=== PATIENT | female | born 1985 | race Caucasian/White ===

== ENCOUNTER → 2016-11-27 | Outpatient (CLI) | payer MEDICAID ==
[2016-11-27 12:15] LABS: HEMATOCRIT 40.6 % (36.0-47.0); HEMOGLOBIN 13.6 g/dL (12.0-15.5); HGB HCT DIFFERENCE 0.2; MEAN CORPUSCULAR HEMOGLOBIN 30.3 pg (27.0-33.4); MEAN CORPUSCULAR HGB CONC 33.5 g/dL (32.0-36.0); MEAN CORPUSCULAR VOLUME 91 fl (80-97); RED BLOOD COUNT 4.48 10^6/uL (3.72-5.28); RED CELL DISTRIBUTION WIDTH 14.4 % (11.5-14.0); WHITE BLOOD COUNT 6.5 10^3/uL (4.0-10.5)
[2016-11-27 12:47] LABS: ALANINE AMINOTRANSFERASE 17 U/L (9-52); ALBUMIN 4.6 g/dL (3.5-5.0); ALKALINE PHOSPHATASE 89 U/L (38-126); AMYLASE 58 U/L (30-110); ANION GAP 13 (5-19); ASPARTATE AMINO TRANSFERASE 22 U/L (14-36); BILIRUBIN,TOTAL 0.5 mg/dL (0.2-1.3); BLOOD UREA NITROGEN 13 mg/dL (7-20); CALCIUM 10.2 mg/dL (8.4-10.2); CARBON DIOXIDE 27 mmol/L (22-30); CHLORIDE 105 mmol/L (98-107); CREATININE RESULT 0.75 mg/dL (0.52-1.25); GLUCOSE 82 mg/dL (75-110); POTASSIUM 4.1 mmol/L (3.6-5.0); SODIUM 145.4 mmol/L (137-145); TOTAL PROTEIN 7.8 g/dL (6.3-8.2)
[2016-11-27 14:03] LABS: BASOPHILS % (MANUAL) 1 % (0-2); EOSINOPHILS % (MANUAL) 4 % (0-6); LYMPHOCYTES % (MANUAL) 28 % (13-45); TOTAL CELLS COUNTED 100
[2016-11-27 14:04] LABS: RBC MORPHOLOGY COMMENT NORMO-CYTIC/CHROMIC
== END ==
LOC: LAB 12:01
PROVIDERS: ATTEND Nurse Practitioner Acute Care
DX: R10.9 Unspecified abdominal pain (principal)
CPT/HCPCS: 36415; 80053; 82150; 83690; 85025

== ENCOUNTER 2016-11-30 18:45 | Observation (INO) | payer MEDICAID ==
[2016-11-30] MEDS ORDERED: ONDANSETRON 4 MG TAB.RAPDIS PO ONE (19:21)
--- NOTE | 2016-11-30 19:21 | ER Document Report ---
ED Medical Screen (RME) - General Chief Complaint: Abdominal Pain Stated Complaint: UPPER/MID ABDOMINAL PAIN,VOMITING Time seen by provider: 19:19 Mode of Arrival: Ambulatory Information source: Patient Notes: 31-year-old female presents to ED right upper abdominal pain for the last week with nausea and vomiting. Denies fever. Has had a hysterectomy. She's had blood work and ultrasound done at the hospital for her primary care doctor but has too much pain to wait for her follow-up appointment. I have greeted and performed a rapid initial assessment of this patient. A comprehensive ED assessment and evaluation of the patient, analysis of test results and completion of medical decision making process will be conducted by an additional ED providers. TRAVEL OUTSIDE OF THE [place] IN LAST 30 DAYS: No Physical Exam - Vital signs Vitals: Temp Pulse Resp BP Pulse Ox 98.3 F 97 16 117/82 98 11/30/16 19:10 11/30/16 19:10 11/30/16 19:10 11/30/16 19:10 11/30/16 19:10 Course - Vital Signs Vital signs: Temp Pulse Resp BP Pulse Ox 98.3 F 97 16 117/82 98 11/30/16 19:10 11/30/16 19:10 11/30/16 19:10 11/30/16 19:10 11/30/16 19:10
[2016-11-30 21:46] LABS: ABSOLUTE EOSINOPHILS # (AUTO) 0.1 10^3/uL (0.0-0.6); ABSOLUTE LYMPHOCYTES (AUTO) 2.6 10^3/uL (0.5-4.7); ABSOLUTE MONOCYTES (AUTO) 0.5 10^3/uL (0.1-1.4); BASOPHILS % (AUTO) 0.2 % (0-2); HEMATOCRIT 39.5 % (36.0-47.0); HEMOGLOBIN 13.1 g/dL (12.0-15.5); HGB HCT DIFFERENCE -0.2; LYMPHOCYTES % (AUTO) 36.3 % (13-45); MEAN CORPUSCULAR HEMOGLOBIN 30.3 pg (27.0-33.4); MEAN CORPUSCULAR HGB CONC 33.2 g/dL (32.0-36.0); MEAN CORPUSCULAR VOLUME 91 fl (80-97); MONOCYTES % (AUTO) 7.3 % (3-13); RED BLOOD COUNT 4.33 10^6/uL (3.72-5.28); RED CELL DISTRIBUTION WIDTH 14.1 % (11.5-14.0); SEGMENTED NEUTROPHILS % (AUTO) 54.2 % (42-78); WHITE BLOOD COUNT 7.3 10^3/uL (4.0-10.5)
[2016-11-30 21:47] LABS: APPEARANCE,URINE SLIGHTLY-CLOUDY; BILIRUBIN,URINE NEGATIVE (NEGATIVE); GLUCOSE, URINE NEGATIVE (NEGATIVE); KETONES,URINE NEGATIVE (NEGATIVE); LEUKOCYTE ESTERASE,URINE NEGATIVE (NEGATIVE); NITRITE,URINE NEGATIVE (NEGATIVE); PROTEIN,URINE NEGATIVE (NEGATIVE); URINE SPECIFIC GRAVITY 1.016; UROBILINOGEN,URINE NEGATIVE mg/dL (<2.0)
[2016-11-30 22:05] LABS: ALANINE AMINOTRANSFERASE 23 U/L (9-52); ALBUMIN 4.9 g/dL (3.5-5.0); ALKALINE PHOSPHATASE 93 U/L (38-126); ANION GAP 12 (5-19); ASPARTATE AMINO TRANSFERASE 22 U/L (14-36); BILIRUBIN,TOTAL 0.4 mg/dL (0.2-1.3); BLOOD UREA NITROGEN 20 mg/dL (7-20); CALCIUM 9.9 mg/dL (8.4-10.2); CARBON DIOXIDE 29 mmol/L (22-30); CHLORIDE 103 mmol/L (98-107); CREATININE RESULT 0.96 mg/dL (0.52-1.25); GLUCOSE 87 mg/dL (75-110); LIPASE 44.2 U/L (23-300); POTASSIUM 4.8 mmol/L (3.6-5.0); SODIUM 143.8 mmol/L (137-145); TOTAL PROTEIN 7.5 g/dL (6.3-8.2)
[2016-12-01] MEDS ORDERED: ONDANSETRON HCL INJ/PF 4 MG/2 ML SDV IV ONE (02:07)
[2016-12-01] MEDS ORDERED: MORPHINE SULFATE 10 MG/ML INJ IV ONE (02:07)
[2016-12-01] MEDS ORDERED: NORMAL SALINE 1000 ML 1,000 ML IV ONE (02:08)
--- NOTE | 2016-12-01 02:10 | ER Document Report ---
ED GI/ - General Chief Complaint: Abdominal Pain Stated Complaint: UPPER/MID ABDOMINAL PAIN,VOMITING Time seen by provider: 02:00 Mode of Arrival: Ambulatory Notes: Patient is a 31-year-old female that comes emergency department for chief complaint of right upper quadrant pain and vomiting, symptoms been present for the past 2 weeks but much worse over the past 2 days, patient states today she couldn't eat anything except sit a little bit of water. Patient had an ultrasound this morning by her primary care provider. Patient denies any fever , reports normal bowel movements. Patient has had a hysterectomy (reportedly secondary to cervical cancer presence), denies any daily medications or any other medical history. TRAVEL OUTSIDE OF THE [place] IN LAST 30 DAYS: No - Related Data Allergies/Adverse Reactions: Penicillins Allergy (Verified 11/30/16 21:27) Past Medical History - General Information source: Patient - Social History Smoking Status: Current Every Day Smoker Frequency of alcohol use: None Drug Abuse: None Lives with: Family Family History: Reviewed & Not Pertinent Patient has suicidal ideation: No Patient has homicidal ideation: No Renal/ Medical History: Denies: Hx Peritoneal Dialysis Past Surgical History: Reports: Hx Hysterectomy - Immunizations Immunizations up to date: Yes Hx Diphtheria, Pertussis, Tetanus Vaccination: Yes Review of Systems - Review of Systems Constitutional: No symptoms reported EENT: No symptoms reported Cardiovascular: No symptoms reported Respiratory: No symptoms reported Gastrointestinal: See HPI Genitourinary: No symptoms reported Female Genitourinary: No symptoms reported Musculoskeletal: No symptoms reported Skin: No symptoms reported Hematologic/Lymphatic: No symptoms reported Neurological/Psychological: No symptoms reported Physical Exam - Vital signs Vitals: Temp Pulse Resp BP Pulse Ox 98.3 F 97 16 117/82 98 11/30/16 19:10 11/30/16 19:10 11/30/16 19:10 11/30/16 19:10 11/30/16 19:10 Interpretation: Normal - General General appearance: Alert, Anxious In distress: Mild - HEENT Head: Normocephalic, Atraumatic Eyes: Normal Pupils: PERRL - Respiratory Respiratory status: No respiratory distress Chest status: Nontender Breath sounds: Normal. No: Decreased air movement, Wheezing Chest palpation: Normal - Cardiovascular Rhythm: Regular Heart sounds: Normal auscultation Murmur: No - Abdominal Inspection: Normal Distension: No distension Bowel sounds: Normal Tenderness: Tender - Patient is tender in the epigastric and right upper quadrant on examination with some guarding, examination brings patient to tears , lower abdominal exam is unremarkable, Beaulieu's sign, Guarding - Back Back: Normal, Nontender. No: Tender - Extremities General upper extremity: Normal inspection, Nontender, Normal color, Normal ROM , Normal temperature General lower extremity: Normal inspection, Nontender, Normal color, Normal ROM , Normal temperature, Normal weight bearing. 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 No obstructive findings in the gallbladder ducts. CBC, chemistry, lipase, urinalysis are all unremarkable. After pain medication, patient still noted to be in pain, patient was given additional Toradol but still was having continued symptoms. Patient stating she is unable to eat anything at home. Because of ongoing symptoms of pain on examination and cholelithiasis patient will be discussed with surgical asked contact center specialist. Discussed with Dr. Sears per [facility] guidelines. Patient evaluated by Dr. Chandler, patient will be admitted to the hospital. - Vital Signs Vital signs: Temp Pulse Resp BP Pulse Ox 97.7 F 72 16 95/60 L 99 12/01/16 02:00 12/01/16 02:00 12/01/16 02:00 12/01/16 02:00 12/01/16 02:00 - Laboratory Result Diagrams: 11/30/16 21:27 11/30/16 21:27 Laboratory results interpreted by me: 11/30/16 21:27 RDW 14.1 H Discharge - Discharge Clinical Impression: Right upper quadrant pain Cholelithiasis Qualifiers: Cholelithiasis location: gallbladder Cholecystitis presence: without cholecystitis Biliary obstruction: without biliary obstruction Qualified Code(s) : K80.20 - Calculus of gallbladder without cholecystitis without obstruction Condition: Stable Disposition: ADMITTED INPATIENT Admitting Provider: Surgicalist Unit Admitted: Surgical Floor Referrals: NUPUR STILES MD, MD [Primary Care Provider] - Follow up as needed
[2016-12-01] MEDS ORDERED: NORMAL SALINE 1000 ML 1,000 ML IV PRN (02:27)
[2016-12-01] MEDS ORDERED: KETOROLAC TROMETHAMINE INJ/PF 30 MG/1 ML SDV IV ONE (04:06)
[2016-12-01] MEDS ORDERED: LEVOFLOXACIN 750 MG/D5W RTU 150 ML IV ONE (06:36)
[2016-12-01] MEDS ORDERED: METRONIDAZOLE 500 MG/NS RTU 100 ML IV ONE (06:36)
[2016-12-01] MEDS ORDERED: DEXTROSE 5%-NORMAL SALINE 1,000 ML IV PRN (06:40)
--- NOTE | 2016-12-01 06:47 | PDOC H&P ---
History of Present Illness Admission Date/PCP: NUPUR STILES MD, Patient complains of: Abdominal pain History of Present Illness: ANUM SMITH is a 31 year old female who was seen in the emergency department by TAM Arora, complaining of a month history of abdominal pain, worse over the last 2 weeks. This is associated with anorexia and nausea and only one episode of vomiting. Patient was seen yesterday at Dr. Stiles's office where she was sent to the hospital have a gallbladder ultrasound which showed gallstones. Patient went home and came back to the emergency department complaining of pain. sHe is kept nothing by mouth, and surgery is consulted. Has a persisting abdominal pain requiring intravenous pain medication, she was advised admission. Past Surgical History Past Surgical History: Reports: Hysterectomy - 2010, [place], abnormal cervical Social History Smoking Status: Current Every Day Smoker Family History Parental Family History Reviewed: Yes Children Family History Reviewed: Yes Sibling(s) Family History Reviewed.: Yes Medication/Allergy Allergies/Adverse Reactions: Penicillins Allergy (Verified 11/30/16 21:27) Review of Systems Constitutional: PRESENT: other Eyes: PRESENT: other - Denies denies Ears: PRESENT: hearing changes - None Breasts: PRESENT: other - Denies Cardiovascular: PRESENT: as per HPI Respiratory: PRESENT: other Gastrointestinal: PRESENT: other - Denies she denies previous episodes of abdominal pain prior to 1 month ago. Never had any gastrointestinal problems Integumentary: PRESENT: other - Denies Physical Exam Vital Signs: Temp Pulse Resp BP Pulse Ox 97.7 F 72 16 95/60 L 99 12/01/16 02:00 12/01/16 02:00 12/01/16 02:00 12/01/16 02:00 12/01/16 02:00 Intake & Output 11/29/16 11/30/16 12/01/16 06:59 06:59 06:59 Weight 55.9 kg General appearance: PRESENT: no acute distress Head exam: PRESENT: normocephalic Eye exam: PRESENT: EOMI Mouth exam: PRESENT: dry mucosa Neck exam: PRESENT: full ROM Respiratory exam: PRESENT: clear to auscultation cesar Cardiovascular exam: PRESENT: RRR Pulses: PRESENT: normal carotid pulses GI/Abdominal exam: PRESENT: other - Soft and minimally tender right upper quadrant no peritoneal signs no rigidity Rectal exam: PRESENT: other Gentrourinary exam: PRESENT: other - Deferred deferred Musculoskeletal exam: PRESENT: full ROM Neurological exam: PRESENT: alert, altered, awake Psychiatric exam: PRESENT: other Skin exam: PRESENT: other - Unremarkable Results Laboratory Results: 11/30/16 21:27 11/30/16 21:27 11/30/16 11/30/16 11/30/16 21:27 21:27 21:27 WBC 7.3 RBC 4.33 Hgb 13.1 Hct 39.5 MCV 91 MCH 30.3 MCHC 33.2 RDW 14.1 H Plt Count 183 Seg Neutrophils % 54.2 Lymphocytes % 36.3 Monocytes % 7.3 Eosinophils % 2.0 Basophils % 0.2 Absolute Neutrophils 4.0 Absolute Lymphocytes 2.6 Absolute Monocytes 0.5 Absolute Eosinophils 0.1 Absolute Basophils 0.0 Sodium 143.8 Potassium 4.8 Chloride 103 Carbon Dioxide 29 Anion Gap 12 BUN 20 Creatinine 0.96 Est GFR ( Amer) > 60 Est GFR (Non-Af Amer) > 60 Glucose 87 Calcium 9.9 Total Bilirubin 0.4 AST 22 ALT 23 Alkaline Phosphatase 93 Total Protein 7.5 Albumin 4.9 Lipase 44.2 Urine Color YELLOW Urine Appearance SLIGHTLY-CLOUDY Urine pH 7.0 Ur Specific [place] 1.016 Urine Protein NEGATIVE Urine Glucose (UA) NEGATIVE Urine Ketones NEGATIVE Urine Blood NEGATIVE Urine Nitrite NEGATIVE Ur Leukocyte Esterase NEGATIVE Urine WBC (Auto) 4 Urine RBC (Auto) 1 Assessment & Plan - Inpatient Certification Based on my medical assessment, after consideration of the patient's comorbidities, presenting symptoms, or acuity I expect that the services needed warrant INPATIENT care.: Yes I certify that my determination is in accordance with my understanding of Medicare's requirements for reasonable and necessary INPATIENT services [42 CFR 412.3e].: Yes Medical Necessity: Need For IV Fluids, Need for Pain Control, Need for IV Antibiotics, Need for Surgery - Plan Summary Plan Summary: Impression: 1. Symptomatic cholelithiasis with cholecystitis 2. Smoker Plan:. 1. Admit to surgical service, nothing by mouth and on IV fluids intravenous antibiotics. 2. We'll plan interval laparoscopic possible open cholecystectomy. I explained patient to be admitted to the surgical service and may undergo surgery within the next 24-48 hours
[2016-12-01] MEDS ORDERED: RINGERS SOLUTION,LACTATED 1,000 ML IV PRN (08:11)
[2016-12-01] MEDS: MORPHINE SULFATE 10 MG/ML INJ IV PRN ×4 (10:33→23:55)
[2016-12-01] MEDS: CIPROFLOXACIN 400 MG/D5W RTU 200 ML IV SCH ×2 (10:34→22:20)
[2016-12-01] MEDS: DEXTROSE 5%-NORMAL SALINE 1,000 ML IV PRN (23:54)
[2016-12-02] MEDS: MORPHINE SULFATE 10 MG/ML INJ IV PRN ×2 (04:12→08:28)
--- NOTE | 2016-12-02 07:19 | PDOC PROGRESS REPORT ---
Subjective Progress Note for:: 12/01/16 Subjective:: Right upper quadrant pain. Currently no nausea or vomiting. Physical Exam Vital Signs: Temp Pulse Resp BP Pulse Ox 98 F 69 18 95/64 L 100 12/02/16 05:52 12/02/16 05:52 12/02/16 05:52 12/02/16 05:52 12/02/16 05:52 Intake & Output 12/01/16 12/02/16 12/03/16 06:59 06:59 06:59 Intake Total 0 Balance 0 Weight 57.323 kg General appearance: PRESENT: no acute distress Eye exam: PRESENT: EOMI Mouth exam: PRESENT: tongue midline Neck exam: ABSENT: JVD, lymphadenopathy, tenderness, thyromegaly Respiratory exam: PRESENT: clear to auscultation cesar Cardiovascular exam: PRESENT: RRR GI/Abdominal exam: PRESENT: Beaulieu's sign, soft, tenderness. ABSENT: distended , guarding, rebound Extremities exam: ABSENT: tenderness Neurological exam: PRESENT: alert, oriented to person, oriented to place, oriented to time, oriented to situation Psychiatric exam: PRESENT: appropriate affect, normal mood Skin exam: ABSENT: jaundice Assessment & Plan - Diagnosis (1) Cholelithiasis Qualifiers: Cholelithiasis location: gallbladder Cholecystitis presence: without cholecystitis Biliary obstruction: without biliary obstruction Qualified Code(s): K80.20 - Calculus of gallbladder without cholecystitis without obstruction Is this a current diagnosis for this admission?: Yes (2) Right upper quadrant pain Is this a current diagnosis for this admission?: YesPlan: Reviewed her history, labs and imaging study in detail. Symptomatic cholelithiasis. We discussed laparoscopic cholecystectomy with cholangiogram in detail. Questions were answered. We discussed the risks, benefits and alternatives including , heart attack, stroke, blood clots in the legs, blood clots in lungs, pneumonia, bleeding, infection, hernia, bile leak, failure of symptoms to resolve, long-term diarrhea, damage to surrounding structures such as bladder, bowels, blood vessels or bile duct resulting in serious long-term health issues. We discussed the possibility of retained stone with need for further procedure such as ERCP. Understands and wishes to proceed.
[2016-12-02] MEDS ORDERED: ONDANSETRON HCL INJ/PF 4 MG/2 ML SDV ONE (07:53)
[2016-12-02] MEDS ORDERED: GLYCOPYRROLATE INJ 0.4 MG/2 ML VIAL ONE (07:53)
[2016-12-02] MEDS ORDERED: ROCURONIUM BROMIDE INJ 50 MG/5 ML VIAL IV ONE (07:53)
[2016-12-02] MEDS ORDERED: SUCCINYLCHOLINE CHLORIDE INJ 200 MG/10 ML VIAL ONE (07:53)
[2016-12-02] MEDS ORDERED: DEXAMETHASONE SOD PHOSPHATE INJ 4 MG/1 ML VIAL ONE (07:53)
[2016-12-02] MEDS ORDERED: NEOSTIGMINE METHYLSULFATE 10 MG/10 ML VIAL ONE (07:53)
[2016-12-02 08:08] LABS: HEMOGLOBIN 11.3 g/dL (12.0-15.5); HGB HCT DIFFERENCE -1.1; MEAN CORPUSCULAR HGB CONC 32.2 g/dL (32.0-36.0); MEAN CORPUSCULAR VOLUME 93 fl (80-97); RED BLOOD COUNT 3.76 10^6/uL (3.72-5.28); RED CELL DISTRIBUTION WIDTH 14.4 % (11.5-14.0); WHITE BLOOD COUNT 5.8 10^3/uL (4.0-10.5)
[2016-12-02 08:24] LABS: ANION GAP 7 (5-19); BLOOD UREA NITROGEN 12 mg/dL (7-20); CALCIUM 8.9 mg/dL (8.4-10.2); CARBON DIOXIDE 26 mmol/L (22-30); CHLORIDE 109 mmol/L (98-107); CREATININE RESULT 0.72 mg/dL (0.52-1.25); GLUCOSE 93 mg/dL (75-110); POTASSIUM 4.5 mmol/L (3.6-5.0); SODIUM 142.2 mmol/L (137-145)
[2016-12-02] MEDS: DEXTROSE 5%-NORMAL SALINE 1,000 ML IV PRN (08:40)
[2016-12-02] MEDS: CIPROFLOXACIN 400 MG/D5W RTU 200 ML IV SCH (09:41)
[2016-12-02] MEDS ORDERED: BUPIVACAINE HCL 0.25% /EPINEPHRINE INJ/PF 30 ML SDV ONE (10:37)
[2016-12-02] MEDS ORDERED: LIDOCAINE 1% INJ-PF (10 MG/ML) 30 ML SDV ONE (10:37)
[2016-12-02] MEDS ORDERED: HYDROMORPHONE HCL INJ/PF 2 MG/ML AMPULE ONE (12:34)
[2016-12-02] MEDS ORDERED: FENTANYL CITRATE INJ/PF 250 MCG/5 ML AMPULE ONE (12:34)
[2016-12-02] MEDS ORDERED: ACETAMINOPHEN 100 ML IV ONE (12:35)
[2016-12-02] MEDS ORDERED: PROPOFOL INJ 200 MG/20 ML VIAL IV ONE (12:35)
[2016-12-02] MEDS ORDERED: MIDAZOLAM 2 MG/2 ML INJ ONE (12:35)
[2016-12-02] MEDS ORDERED: INFLUENZA ADLT QUAD (36MOS+) 2016-17 VAC 0.5 ML SYR IM PRN (13:05)
--- NOTE | 2016-12-02 13:14 | PDOC PROGRESS REPORT ---
Subjective Progress Note for:: 12/02/16 Subjective:: Had nausea and small volume vomiting earlier today. Still with right upper quadrant pain. Wants to proceed with surgery Physical Exam Vital Signs: Temp Pulse Resp BP Pulse Ox 97.8 F 71 17 108/65 99 12/02/16 11:46 12/02/16 11:46 12/02/16 11:46 12/02/16 11:46 12/02/16 11:46 Intake & Output 12/01/16 12/02/16 12/03/16 06:59 06:59 06:59 Intake Total 0 Balance 0 Weight 57.323 kg General appearance: PRESENT: no acute distress Head exam: PRESENT: normocephalic Respiratory exam: PRESENT: clear to auscultation cesar Cardiovascular exam: PRESENT: RRR GI/Abdominal exam: PRESENT: Beaulieu's sign, soft, tenderness. ABSENT: distended , guarding, rebound Neurological exam: PRESENT: alert, oriented to situation Psychiatric exam: PRESENT: appropriate affect, normal mood Skin exam: ABSENT: jaundice Results Laboratory Results: 12/02/16 07:38 12/02/16 07:38 12/02/16 12/02/16 12/02/16 07:38 07:38 07:38 WBC 5.8 RBC 3.76 Hgb 11.3 L Hct 35.0 L MCV 93 MCH 30.0 MCHC 32.2 RDW 14.4 H Plt Count 137 L Sodium 142.2 Potassium 4.5 Chloride 109 H Carbon Dioxide 26 Anion Gap 7 BUN 12 Creatinine 0.72 Est GFR ( Amer) > 60 Est GFR (Non-Af Amer) > 60 Glucose 93 Calcium 8.9 Serum HCG, Qual Blood Type B POSITIVE Antibody Screen NEGATIVE 12/02/16 07:38 WBC RBC Hgb Hct MCV MCH MCHC RDW Plt Count Sodium Potassium Chloride Carbon Dioxide Anion Gap BUN Creatinine Est GFR ( Amer) Est GFR (Non-Af Amer) Glucose Calcium Serum HCG, Qual NEGATIVE Blood Type Antibody Screen Assessment & Plan - Diagnosis (1) Cholelithiasis Qualifiers: Cholelithiasis location: gallbladder Cholecystitis presence: without cholecystitis Biliary obstruction: without biliary obstruction Qualified Code(s): K80.20 - Calculus of gallbladder without cholecystitis without obstruction Is this a current diagnosis for this admission?: Yes (2) Right upper quadrant pain Is this a current diagnosis for this admission?: YesPlan: Symptomatic cholelithiasis. Proceed with surgery. SCDs. 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 Questions answered.
[2016-12-02] MEDS ORDERED: MEPERIDINE HCL/PF INJ 25 MG/1 ML DISP.SYRIN IV PRN (13:41)
[2016-12-02] MEDS ORDERED: DIPHENHYDRAMINE HCL 50 MG/ML VIAL IV PRN (13:41)
[2016-12-02] MEDS ORDERED: FENTANYL CITRATE INJ/PF 100 MCG/2 ML AMPUL IV PRN ×3 (13:41)
[2016-12-02] MEDS ORDERED: MORPHINE SULFATE 10 MG/ML INJ IV PRN (13:41)
[2016-12-02] MEDS ORDERED: PROMETHAZINE HCL INJ 25 MG/1 ML VIAL IV PRN ×2 (13:41)
[2016-12-02] MEDS ORDERED: OXYCODONE-ACETAMINOPHEN 5-325 MG TABLET PO PRN ×2 (13:41)
[2016-12-02] MEDS ORDERED: ONDANSETRON HCL INJ/PF 4 MG/2 ML SDV IV PRN (14:38)
--- NOTE | 2016-12-02 14:39 | Operative Report ---
Operative Report DATE OF SURGERY: 12/02/16 PREOPERATIVE DIAGNOSIS: Symptomatic cholelithiasis POSTOPERATIVE DIAGNOSIS: Symptomatic cholelithiasis OPERATION: Laparoscopic cholecystectomy with cholangiogram SURGEON: WATSON HORN 1ST BUILDING ASSOCIATE: RUSS VILLARREAL ANESTHESIA: GA TISSUE REMOVED OR ALTERED: Gallbladder COMPLICATIONS: None noted ESTIMATED BLOOD LOSS: minimal INTRAOPERATIVE FINDINGS: Normal cholangiogram. PROCEDURE: The patient was brought to the operative suite and placed supine on the OR table. Timeout was performed. Antibiotics were administered. Padding and positioning was appropriate. The patient was induced, intubated and maintained on general endotracheal anesthesia throughout the procedure. Patient was prepped and draped in the normal sterile fashion. The skin above the umbilicus was infiltrated with local anesthetic. A 5 mm incision was made. A Julio Cesar and Adson were used to dissect down to the level of the fascia, grasped the fascia and elevate it. The Veress needle was placed. Satisfactory water drop test was performed. Low flow insufflation was connected and yielded low opening pressure. Insufflation was advanced to high flow and pneumoperitoneum of 15 mmHg was obtained and maintained with procedure. Trocar and camera were placed through this incision confirming entry into the abdominal cavity without incident. Next the 11 mm epigastric and the two 5 mm right subcostal trochars were placed in the normal location and fashion under direct visualization, after infiltration with local anesthetic. Instruments were introduced. The abdominal cavity was surveyed and appeared normal except for the gallbladder. There were adhesions to the gallbladder which were taken down with a combination of electrocautery and blunt dissection. The fundus of the gallbladder was elevated over the liver edge. The dissection the gallbladder began on the lateral aspect. Dissection continued down to the triangle of Calot. The cystic artery and the cystic duct were dissected out and seen to be clearly entering the gallbladder with no obscuration. The cystic duct was clipped adjacent to the gallbladder. A ductotomy was made. A cholangiocatheter was inserted. A cholangiogram was performed showing good filling of the biliary tree proximally and distally on down into the duodenum with no filling defects. The cholangiocatheter was removed. The cystic duct was clipped 3 times proximally and divided between clips. The cystic artery was clipped twice proximally and once distally against the gallbladder and divided between the clips. The gallbladder was removed from the gallbladder fossa with hook electrocautery. It was placed in an Endo Catch bag and removed through the epigastric trocar site. It was sent to pathology for further analysis. The field was irrigated and suctioned. The field was intact with no leakage of bile or blood. Clips were in place. The abdominal cavity was surveyed and was unremarkable. Trocar sites were infiltrated with more local anesthetic. The epigastric trocar site was closed at the level of the fascia with 0 Vicryl suture using the Endo Close needle. Pneumoperitoneum was released. Trochars were removed. Incisions were closed at the level of the skin with 4-0 Monocryl. The closed incisions were dressed with benzoin tincture , Steri-Strips and Band-Aids. All lap needle sponge counts were correct. The patient tolerated procedure well and was taken recovery in stable condition. TAM Herndon was present and assisted for the entirety of the case. She provided dahl assistance with a variety of tasks including but not limited to obtaining pneumoperitoneum, operating camera, retracting, and closing incisions.
[2016-12-02] MEDS: HYDROCODONE/ACETAMINOPHEN 5-325 MG TABLET PO PRN ×2 (15:48→18:52)
[2016-12-02 20:04] VITALS: BP 95/64
== END 2016-12-02 20:26 | disposition home or self-care (01) ==
LOC: ER 18:45 → EH 12-01 06:38 → 2S 12-01 08:45
PROC: 0FT44ZZ Resection of Gallbladder, Percutaneous Endoscopic Approach (ICD-10-PCS; principal; 2016-12-02 14:15)
DX: K80.10 Calculus of gallbladder with chronic cholecystitis without obstruction (principal); F17.210 Nicotine dependence, cigarettes, uncomplicated
CPT/HCPCS: 47563; 99285; 96361; 96374; 96375; 86900; 86901; 36415 ×2; 86850; 83690; 84703; 85025; 85027; 80048; 80053; 81001; 88304 ×2; 74300; 94799; G0378 ×3; Q9967; J2250; J3490 ×4; J1100; S0119; J3010; J1885; J2270 ×2; J1170; J0330; J2405 ×2; J7030; J7120; J2704; J0744 ×2; J0131; 790

== ENCOUNTER → 2016-11-30 | Outpatient (CLI) | payer MEDICAID | LOC: RAD 08:02 | PROVIDERS: ATTEND Nurse Practitioner Acute Care | DX: R10.9 Unspecified abdominal pain (principal) | CPT/HCPCS: 76705 ==

== ENCOUNTER 2017-06-23 12:47 | Emergency (ER) | payer MEDICAID ==
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
[2017-06-23] MEDS ORDERED: IBUPROFEN 800 MG TABLET PO ONE (14:00)
[2017-06-23 16:48] VITALS: BP 100/58
--- NOTE | 2017-06-25 02:11 | RADIOLOGY REPORT (SQ) ---
EXAM DESCRIPTION: HUMERUS RIGHT COMPLETED DATE/TIME: 06/23/2017 2:19 pm REASON FOR STUDY: fall out of bed with pain COMPARISON: None. NUMBER OF VIEWS: Two views. TECHNIQUE: Two radiographic images were acquired of the right humerus to include elbow and shoulder in at least one projection. LIMITATIONS: None. FINDINGS: MINERALIZATION: Normal. BONES: No acute fracture or dislocation. No worrisome bone lesions. SOFT TISSUES: No obvious swelling or foreign body. OTHER: No other significant finding. IMPRESSION: No humeral fracture is seen. If there is concern for an injury at the elbow, additional images should be obtained. TECHNICAL DOCUMENTATION: JOB ID: [id number] [email or web address]- All Rights Reserved
--- NOTE | 2017-06-25 15:58 | RADIOLOGY REPORT (SQ) ---
EXAM DESCRIPTION: FOREARM RIGHT COMPLETED DATE/TIME: 06/23/2017 2:30 pm REASON FOR STUDY: Injury pain COMPARISON: No previous TECHNIQUE: Right forearm two views LIMITATIONS: A FINDINGS: Normal bone density. No acute fracture of the radius or ulna. Limited view of the right elbow and right wrist joints are unremarkable. No soft tissue gas or radiopaque foreign body. IMPRESSION: No acute findings
== END 2017-06-23 16:48 | disposition home or self-care (01) ==
LOC: ER 12:47
DX: S50.11XA Contusion of right forearm, initial encounter (principal); S40.011A Contusion of right shoulder, initial encounter; W06.XXXA Fall from bed, initial encounter
CPT/HCPCS: 99283; 73090; 73060; J3490

== ENCOUNTER 2017-08-18 09:06 | Emergency (ER) | payer SELFPAY ==
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
--- NOTE | 2017-08-18 10:48 | RADIOLOGY REPORT (SQ) ---
EXAM DESCRIPTION: FINGER LEFT COMPLETED DATE/TIME: 08/18/2017 10:38 am REASON FOR STUDY: 3rd PIP joint injury COMPARISON: None. NUMBER OF VIEWS: Three views. TECHNIQUE: AP, lateral, and oblique images acquired of the left third finger. LIMITATIONS: None. FINDINGS: MINERALIZATION: Normal. BONES: No acute fracture or dislocation. No worrisome bone lesions. SOFT TISSUES: No soft tissue swelling. No foreign body. OTHER: No other significant finding. IMPRESSION: NO RADIOGRAPHIC EVIDENCE OF ACUTE INJURY. COMMENT: SITE OF TRAUMA/COMPLAINT MARKED/STAMP COMPLETED: YES. TECHNICAL DOCUMENTATION: JOB ID: [id number] [employer]- All Rights Reserved
[2017-08-18 11:27] VITALS: BP 89/60
== END 2017-08-18 11:24 | disposition home or self-care (01) ==
LOC: ER 09:06
DX: S63.633A Sprain of interphalangeal joint of left middle finger, initial encounter (principal); M79.645 Pain in left finger(s); W51.XXXA Accidental striking against or bumped into by another person, initial encounter; F17.210 Nicotine dependence, cigarettes, uncomplicated
CPT/HCPCS: 99283

== ENCOUNTER 2018-03-06 20:39 | Emergency (ER) | payer MEDICAID, OTHER ==
[2018-03-06 20:52] VITALS: BP 112/71
--- NOTE | 2018-03-06 22:13 | RADIOLOGY REPORT (SQ) ---
EXAM DESCRIPTION: FINGER RIGHT COMPLETED DATE/TIME: 03/06/2018 9:56 pm REASON FOR STUDY: Pain s/p injury COMPARISON: None. NUMBER OF VIEWS: Three views. TECHNIQUE: AP, lateral, and oblique images acquired of the right second finger. LIMITATIONS: None. FINDINGS: MINERALIZATION: Normal. BONES: Distal tuft nondisplaced fracture of the 2nd distal phalanx. No other fracture or Dislocation . No worrisome bone lesions. SOFT TISSUES: No soft tissue swelling. No foreign body. OTHER: No other significant finding. IMPRESSION: Distal tuft nondisplaced fracture of the 2nd distal phalanx. COMMENT: SITE OF TRAUMA/COMPLAINT MARKED/STAMP COMPLETED: Yes TECHNICAL DOCUMENTATION: JOB ID: [id number] [place]-[id number] [employer]- All Rights Reserved Reading location - IP/workstation name: [email or web address]
[2018-03-06] MEDS ORDERED: OXYCODONE-ACETAMINOPHEN 5-325 MG TABLET PO ONE (22:23)
[2018-03-06] MEDS ORDERED: ONDANSETRON 4 MG TAB.RAPDIS PO ONE (22:24)
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
== END 2018-03-06 23:05 | disposition home or self-care (01) ==
LOC: ER 20:39
PROC: 2W3JX1Z Immobilization of Right Finger using Splint (ICD-10-PCS; principal; 2018-03-06)
DX: S62.630A Displaced fracture of distal phalanx of right index finger, initial encounter for closed fracture (principal); M79.89 Other specified soft tissue disorders; X58.XXXA Exposure to other specified factors, initial encounter
CPT/HCPCS: 99283; 73140; 29130; S0119

== ENCOUNTER 2019-09-19 16:40 | Emergency (ER) | payer SELFPAY ==
--- NOTE | 2019-09-19 16:50 | ER Document Report ---
ED Medical Screen (RME) - General Stated Complaint: FALL/PELVIC PAIN Time Seen by Provider: 09/19/19 16:50 TRAVEL OUTSIDE OF THE [place] IN LAST 30 DAYS: No - HPI Notes: 09/19/19 16:56 33-year-old female to the emergency department with complaints of pelvic pain since Wednesday. She states that she slipped in the bathroom and landed straddling the bathtub. States that this is been a ongoing pain since then. She states that she has numbness and tingling to the front of her legs as well. States it hurts when she walks or when she moves at all. Denies any vaginal bleeding. I performed a brief medical screening exam on the patient and determined that she needs further evaluation and management by main side ER provider I have placed initial orders for imaging studies to aid in her expedited care. - Related Data Allergies/Adverse Reactions: naproxen Allergy (Verified 09/19/19 18:22) Penicillins Allergy (Verified 06/23/17 12:57) cyclobenzaprine [From Flexeril] Adverse Reaction (Verified 09/19/19 18:22) Past Medical History Renal/ Medical History: Denies: Hx Peritoneal Dialysis Malignancy Medical History: Reports: Hx Cervical Cancer GI Medical History: Reports: Hx Gastroesophageal Reflux Disease - occasional Past Surgical History: Reports: Hx Cholecystectomy, Hx Hysterectomy, Hx Tonsillectomy, Hx Tubal Ligation - Immunizations Immunizations up to date: Yes Hx Diphtheria, Pertussis, Tetanus Vaccination: No - pt not sure Physical Exam - Vital signs Vitals: Temp Pulse Resp BP Pulse Ox 97.9 F 101 H 20 127/86 H 98 09/19/19 16:45 09/19/19 16:45 09/19/19 16:45 09/19/19 16:45 09/19/19 16:45 Course - Vital Signs Vital signs: Temp Pulse Resp BP Pulse Ox 98.0 F 82 16 103/63 97 09/19/19 19:16 09/19/19 19:16 09/19/19 19:16 09/19/19 19:16 09/19/19 19:16 Doctor's Discharge - Discharge Clinical Impression: Pubic bone pain, Bilateral thigh pain Condition: Stable Disposition: HOME, SELF-CARE Additional Instructions: Today you are seen in the emergency department for pelvic pain. This was due to a fall 2 days ago. We did obtain an x-ray and a CAT scan which did not reveal any fracture of the pelvis or abnormality. Your symptoms are most likely due to a deep tissue contusion and muscle spasming. I will prescribe the Robaxin which is a muscle relaxer. Do not drink alcohol or operate heavy machinery while on this medication. I am also prescribing you Ultram. Ultram is a narcotic-like pain medication. This can make you drowsy. Only take this as needed. I would attempt to incorporate an anti-inflammatory such as ibuprofen. Please continue to use the warm packs to the areas as this seems to be helpful. Please return to the emergency department if you develop any new or worsening symptoms. This injury and pain can last a few days to even weeks. Contusion Your injury has resulted in a contusion -- a crushing of the deep tissues. No injury to important structures was detected during the physician's exam. Contusions vary in the amount of pain they cause, and in the length of time required for healing. Typically, the area will become bruised, and will remain painful to touch for two or three weeks. However, most patients are back to working and playing within a few days. After the initial period of rest and cold-packs, your symptoms (together with the doctor's recommendations) will determine how rapidly you can get back to full activity. Usually this means "do what feels okay, but don't do things that hurt." If re-examination was recommended, it's important to follow up as instructed. Call the doctor or return any time if pain increases, if swelling becomes severe, if you develop numbness or weakness in an injured extremity, or if any other alarming symptoms occur. Prescriptions: Methocarbamol [Robaxin 500 mg Tablet] 1,000 mg PO TID PRN 7 Days #21 tablet PRN Reason: Tramadol HCl [Ultram] 50 mg PO Q6 PRN #15 tablet PRN Reason:
[2019-09-19] MEDS ORDERED: MORPHINE SULFATE 10 MG/ML INJ IM ONE (16:55)
[2019-09-19] MEDS ORDERED: DIAZEPAM 5 MG TABLET PO ONE (16:56)
--- NOTE | 2019-09-19 17:22 | RADIOLOGY REPORT (SQ) ---
EXAM DESCRIPTION: PELVIS AP COMPLETED DATE/TIME: 09/19/2019 5:11 pm REASON FOR STUDY: fall, pelvic pain COMPARISON: None. NUMBER OF VIEWS: One view TECHNIQUE: AP Pelvis LIMITATIONS: None. FINDINGS: MINERALIZATION: Normal. HIPS: No acute fracture or dislocation. No worrisome bone lesions. PELVIS AND SACRUM: No acute fracture or dislocation. No worrisome bone lesions. PUBIS AND ISCHIUM: No acute fracture. LOWER LUMBAR SPINE: No significant findings as visualized. SOFT TISSUES: No findings. OTHER: No other significant finding. IMPRESSION: NEGATIVE STUDY OF THE PELVIS. COMMENT: Pelvic fractures are often occult on plain radiographs. If strong clinical suspicion for f racture, recommend CT or MR. TECHNICAL DOCUMENTATION: JOB ID: [id number] [place]-72 2010 [employer]- All Rights Reserved Reading location - IP/workstation name: [email or web address]
--- NOTE | 2019-09-19 17:48 | ER Document Report ---
HPI - HPI Time Seen by Provider: 09/19/19 16:50 Pain Level: 5 Context: Patient is a 33-year-old female who presents to the emergency department with a chief complaint of pelvic pain. Patient reports on Wednesday, 2 days ago, she was getting out of the shower when she slipped and straddled the edge of the tub. Patient reports her pelvic bone struck the tub. Patient reports she has been in significant pain since then. Patient reports the pain is worse with movement. Patient reports she feels the pain radiating to the top of her thighs. Patient denies any other injury. Patient reports she is had a hysterectomy. Patient denies vaginal bleeding or discharge. Patient denies vaginal trauma and reports this all to the pelvis bone. Patient denies abdominal pain, head injury or loss of consciousness. - REPRODUCTIVE Reproductive: DENIES: : Past Medical History - General Information source: Patient - Social History Smoking Status: Current Every Day Smoker Chew tobacco use (# tins/day): No Frequency of alcohol use: None Drug Abuse: None Lives with: Family Family History: Reviewed & Not Pertinent Patient has suicidal ideation: No Patient has homicidal ideation: No - Past Medical History Cardiac Medical History: Reports: None Pulmonary Medical History: Reports: None EENT Medical History: Reports: None Neurological Medical History: Reports: None Endocrine Medical History: Reports: None Renal/ Medical History: Reports: None. Denies: Hx Peritoneal Dialysis Malignancy Medical History: Reports: Hx Cervical Cancer GI Medical History: Reports: Hx Gastroesophageal Reflux Disease - occasional Musculoskeletal Medical History: Reports None Skin Medical History: Reports None Psychiatric Medical History: Reports: None Traumatic Medical History: Reports: None Infectious Medical History: Reports: None Past Surgical History: Reports: Hx Cholecystectomy, Hx Hysterectomy, Hx Tonsillectomy, Hx Tubal Ligation - Immunizations Immunizations up to date: Yes Hx Diphtheria, Pertussis, Tetanus Vaccination: No - pt not sure Vertical Provider Document - CONSTITUTIONAL Agree With Documented VS: Yes Exam Limitations: No Limitations General Appearance: Mild Distress - INFECTION CONTROL TRAVEL OUTSIDE OF THE [place] IN LAST 30 DAYS: No - HEENT HEENT: Atraumatic, Normocephalic, PERRLA - NECK Neck: Normal Inspection - RESPIRATORY Respiratory: Breath Sounds Normal, No Respiratory Distress - CARDIOVASCULAR Cardiovascular: Regular Rate, Regular Rhythm - GI/ABDOMEN Gastrointestinal: Abdomen Soft, Abdomen Non-Tender, Normal Bowel Sounds Notes: Tenderness noted to the pubis bone. There is no surrounding erythema or ecchymosis/edema. Patient's pelvis is stable without crepitus. - REPRODUCTIVE Last Menstrual Period: Hysterectomy. Course - Re-evaluation Re-evalutation: 09/19/19 17:47 Patient did receive Valium and Morphine about 1 hour ago. Patient reports that initially was helping but after attempting to transfer from the wheelchair to the stretcher she developed significant pain. Patient requesting more pain medication. Patient appears to be uncomfortable. The x-ray was negative. Will order a CAT scan to rule out a pelvic fracture. 09/19/19 18:58 Patient resting comfortably on stretcher. Patient reports as long she does not move her pelvic region does not bother her. Patient once again denies vaginal trauma and only states having pain and muscle spasms to the pelvic area and upper thighs. Patient's pelvic CAT scan was negative. I will give the patient medication to go home with. I did discuss with the patient that healing varies between people and can take up to a few weeks. I did inform the patient to use warm compresses as this seemed to help her. - Vital Signs Vital signs: Temp Pulse Resp BP Pulse Ox 97.9 F 101 H 20 127/86 H 98 09/19/19 16:45 09/19/19 16:45 09/19/19 16:45 09/19/19 16:45 09/19/19 16:45 - Diagnostic Test Radiology reviewed: Reports reviewed Radiology results interpreted by me: 09/19/19 18:50 Pelvis X-Ray 09/19/19 16:55 IMPRESSION: NEGATIVE STUDY OF THE PELVIS. Pelvis CT 09/19/19 17:43 IMPRESSION: NO ACUTE FINDINGS. Discharge - Discharge Clinical Impression: Pubic bone pain, Bilateral thigh pain Condition: Stable Disposition: HOME, SELF-CARE Additional Instructions: Today you are seen in the emergency department for pelvic pain. This was due to a fall 2 days ago. We did obtain an x-ray and a CAT scan which did not reveal any fracture of the pelvis or abnormality. Your symptoms are most likely due to a deep tissue contusion and muscle spasming. I will prescribe the Robaxin which is a muscle relaxer. Do not drink alcohol or operate heavy machinery while on this medication. I am also prescribing you Ultram. Ultram is a narcotic-like pain medication. This can make you drowsy. Only take this as needed. I would attempt to incorporate an anti-inflammatory such as ibuprofen. Please continue to use the warm packs to the areas as this seems to be helpful. Please return to the emergency department if you develop any new or worsening symptoms. This injury and pain can last a few days to even weeks. Contusion Your injury has resulted in a contusion -- a crushing of the deep tissues. No injury to important structures was detected during the physician's exam. Contusions vary in the amount of pain they cause, and in the length of time required for healing. Typically, the area will become bruised, and will remain painful to touch for two or three weeks. However, most patients are back to working and playing within a few days. After the initial period of rest and cold-packs, your symptoms (together with the doctor's recommendations) will determine how rapidly you can get back to full activity. Usually this means "do what feels okay, but don't do things that hurt." If re-examination was recommended, it's important to follow up as instructed. Call the doctor or return any time if pain increases, if swelling becomes severe, if you develop numbness or weakness in an injured extremity, or if any other alarming symptoms occur. Prescriptions: Methocarbamol [Robaxin 500 mg Tablet] 1,000 mg PO TID PRN 7 Days #21 tablet PRN Reason: Tramadol HCl [Ultram] 50 mg PO Q6 PRN #15 tablet PRN Reason:
[2019-09-19] MEDS ORDERED: KETOROLAC TROMETHAMINE INJ/PF 30 MG/1 ML SDV IM ONE (18:09)
--- NOTE | 2019-09-19 18:49 | RADIOLOGY REPORT (SQ) ---
EXAM DESCRIPTION: CT PELVIS WITHOUT COMPLETED DATE/TIME: 09/19/2019 6:33 pm REASON FOR STUDY: r/o pelvic fracture, fall wednesday straddling tub COMPARISON: None. TECHNIQUE: CT scan of the pelvis performed without intravenous or oral contrast. Images reviewed wi th soft tissue and bone windows. Reconstructed coronal and sagittal MPR images reviewed. All images stored on PACS. All CT scanners at this facility use dose modulation, iterative reconstruction, and/or weight based d osing when appropriate to reduce radiation dose to as low as reasonably achievable (ALARA). [facility]: Dose Right [facility]: CareDose [facility]: Dose Right [facility]: Teradose 4D [facility]: Smart J[employer] RADIATION DOSE: mGy. LIMITATIONS: None. FINDINGS: PELVIC BONES: No acute fracture. No worrisome bone lesions. VISUALIZED SPINE: No acute findings. HIP(S): No acute fracture or dislocation. No worrisome bone lesions. PELVIC SOFT TISSUES: No acute findings. EXTRAPELVIC SOFT TISSUES: No significant findings. OTHER: No other significant finding. IMPRESSION: NO ACUTE FINDINGS. TECHNICAL DOCUMENTATION: JOB ID: [id number] Quality ID # [id number]: Final reports with documentation of one or more dose reduction techniques (e.g., Au tomated exposure control, adjustment of the mA and/or kV according to patient size, use of iterative reconstruction technique) 2010 [employer]- All Rights Reserved Reading location - IP/workstation name: [email or web address]
[2019-09-19] MEDS ORDERED: TRAMADOL HCL 50 MG TABLET PO ONE (19:03)
[2019-09-19 19:18] VITALS: BP 103/63
== END 2019-09-19 19:16 | disposition home or self-care (01) ==
LOC: ER 16:40
DX: R10.2 Pelvic and perineal pain (principal); M79.652 Pain in left thigh; M79.651 Pain in right thigh; W18.2XXA Fall in (into) shower or empty bathtub, initial encounter; Y93.E1 Activity, personal bathing and showering; F17.200 Nicotine dependence, unspecified, uncomplicated; Z90.49 Acquired absence of other specified parts of digestive tract; Z90.710 Acquired absence of both cervix and uterus
CPT/HCPCS: 72170; 72192; J2270; 96374; 99284

== ENCOUNTER 2019-12-08 21:33 | Emergency (ER) | payer MEDICAID ==
[2019-12-08 22:18] VITALS: BP 139/90
--- NOTE | 2019-12-08 22:29 | ER Document Report ---
ED Medical Screen (RME) - General Chief Complaint: Breast Lump Stated Complaint: POSSIBLE KNOT IN BREAST Time Seen by Provider: 12/08/19 22:23 Notes: Patient is a 34-year-old female who presents emergency department with a chief complaint of right breast lump. Patient reports she has a painful and swollen right breast lump that she noticed on Wednesday. Patient reports she has had a full hysterectomy as she did have cervical cancer in 2009. Patient reports that her paternal grandmother and aunt had breast cancer and presented the same with an acute onset. Patient reports she does not get cysts in her breast. Patient denies fever. Patient has redness to the skin. TRAVEL OUTSIDE OF THE [place] IN LAST 30 DAYS: No - Related Data Allergies/Adverse Reactions: naproxen Allergy (Verified 09/19/19 18:22) Penicillins Allergy (Verified 06/23/17 12:57) cyclobenzaprine [From Flexeril] Adverse Reaction (Verified 09/19/19 18:22) Past Medical History - Social History Chew tobacco use (# tins/day): No Frequency of alcohol use: None Drug Abuse: None Renal/ Medical History: Denies: Hx Peritoneal Dialysis Malignancy Medical History: Reports: Hx Cervical Cancer GI Medical History: Reports: Hx Gastroesophageal Reflux Disease - occasional Past Surgical History: Reports: Hx Cholecystectomy, Hx Hysterectomy, Hx Tonsillectomy, Hx Tubal Ligation - Immunizations Immunizations up to date: Yes Hx Diphtheria, Pertussis, Tetanus Vaccination: No - pt not sure Physical Exam - Vital signs Vitals: Temp Pulse Resp BP Pulse Ox 98.0 F 82 16 139/90 H 100 12/08/19 22:15 12/08/19 22:15 12/08/19 22:15 12/08/19 22:15 12/08/19 22:15 Course - Re-evaluation Re-evalutation: 12/08/19 22:28 Patient has a tender/movable irregular mass noted in the right upper quadrant of the right breast. There is no significant swelling or redness noted to the skin. I have greeted and performed a rapid initial assessment of this patient. A comprehensive ED assessment and evaluation of the patient, analysis of test results and completion of the medical decision making process will be conducted by additional ED providers. - Vital Signs Vital signs: Temp Pulse Resp BP Pulse Ox 98.0 F 82 16 139/90 H 100 12/08/19 22:15 12/08/19 22:15 12/08/19 22:15 12/08/19 22:15 12/08/19 22:15
--- NOTE | 2019-12-08 22:40 | ER Document Report ---
HPI - HPI Time Seen by Provider: 12/08/19 22:23 Pain Level: 5 Context: Patient is a 34-year-old female who presents emergency department with a chief complaint of right breast lump. Patient reports she has a painful and swollen right breast lump that she noticed on Wednesday. Patient reports she has had a full hysterectomy as she did have cervical cancer in 2009. Patient reports that her paternal grandmother and aunt had breast cancer and presented the same with an acute onset. Patient reports she does not get cysts in her breast. Patient denies fever. Patient has redness to the skin. - REPRODUCTIVE Reproductive: DENIES: : Past Medical History - General Information source: Patient - Social History Smoking Status: Current Every Day Smoker Chew tobacco use (# tins/day): No Frequency of alcohol use: None Drug Abuse: None Lives with: Family Family History: Reviewed & Not Pertinent Patient has suicidal ideation: No Patient has homicidal ideation: No - Past Medical History Cardiac Medical History: Reports: None Pulmonary Medical History: Reports: None EENT Medical History: Reports: None Neurological Medical History: Reports: None Endocrine Medical History: Reports: None Renal/ Medical History: Reports: None. Denies: Hx Peritoneal Dialysis Malignancy Medical History: Reports: Hx Cervical Cancer GI Medical History: Reports: Hx Gastroesophageal Reflux Disease - occasional Musculoskeletal Medical History: Reports None Skin Medical History: Reports None Psychiatric Medical History: Reports: None Traumatic Medical History: Reports: None Infectious Medical History: Reports: None Past Surgical History: Reports: Hx Cholecystectomy, Hx Hysterectomy, Hx Tonsill ectomy, Hx Tubal Ligation - Immunizations Immunizations up to date: Yes Hx Diphtheria, Pertussis, Tetanus Vaccination: No - pt not sure Vertical Provider Document - CONSTITUTIONAL Agree With Documented VS: Yes Exam Limitations: No Limitations General Appearance: No Apparent Distress - INFECTION CONTROL TRAVEL OUTSIDE OF THE [place] IN LAST 30 DAYS: No - HEENT HEENT: Atraumatic, Normal ENT Exam, Normocephalic, PERRLA - NECK Neck: Normal Inspection - RESPIRATORY Respiratory: Breath Sounds Normal, No Respiratory Distress - CARDIOVASCULAR Cardiovascular: Regular Rate, Regular Rhythm - GI/ABDOMEN Gastrointestinal: Abdomen Soft, Abdomen Non-Tender, Normal Bowel Sounds - MUSCULOSKELETAL/EXTREMETIES Musculoskeletal/Extremeties: FROM - NEURO Level of Consciousness: Awake, Alert, Appropriate - DERM Integumentary: Warm, Dry, No Rash Adult Front & Back Diagram: 1 - Patient has a tender/movable irregular mass noted in the right upper quadrant of the right breast. There is no significant swelling or redness noted to the skin. Course - Re-evaluation Re-evalutation: 12/08/19 22:57 Her ultrasound department does not perform breast ultrasounds. I did provide the patient with an outpatient order form and told [facility] to schedule this. I did tell her to return department if she has any issues or concerns. Patient use Tylenol and ibuprofen as needed for pain. - Vital Signs Vital signs: Temp Pulse Resp BP Pulse Ox 98.0 F 82 16 139/90 H 100 12/08/19 22:15 12/08/19 22:15 12/08/19 22:15 12/08/19 22:15 12/08/19 22:15 Discharge - Discharge Clinical Impression: Breast mass, right Condition: Stable Disposition: HOME, SELF-CARE Additional Instructions: *Today was seen in the emergency department for right breast mass. Unfortunately our ultrasound department does not focus on right breast mass. I am giving you an outpatient form for [facility]. Call them on Wednesday to schedule an appointment. We will take this order form to them. Forms: Follow-Up Radiology Testing
== END 2019-12-08 22:52 | disposition home or self-care (01) ==
LOC: ER 21:33
DX: N63.10 Unspecified lump in the right breast, unspecified quadrant (principal); N64.4 Mastodynia; F17.200 Nicotine dependence, unspecified, uncomplicated; Z80.3 Family history of malignant neoplasm of breast
CPT/HCPCS: 99283